=== PATIENT | male | born 1975 | race Caucasian/White ===

== ENCOUNTER 2019-05-30 04:31 | Emergency (ER) | payer MEDICAID ==
[~2019-05-30] VITALS: Ht 188 cm; Wt 104.3 kg
--- NOTE | 2019-05-30 05:28 | NUR ---
Pt had episode of elevated HR at 140's. Dr. Phillips made aware.
--- NOTE | 2019-05-30 05:40 | NUR ---
Pt ambulated into ER with stable gait, A/O x 4. 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 (+) daily smoker Safe environment implemented.
[2019-05-30] MEDS ORDERED: NITROGLYCERIN OINT 1 GM PACKET TP ONE ×2 (05:42→05:45)
[2019-05-30] MEDS ORDERED: NITROGLYCERIN 0.4 MG/TAB BOTTLE SL ONE ×2 (05:42→05:45)
[2019-05-30] MEDS ORDERED: ASPIRIN 81 MG TAB.CHEW ONE (05:42)
[2019-05-30] MEDS ORDERED: ASPIRIN 81 MG TAB.CHEW PO ONE (05:45)
[2019-05-30 05:53] LABS: POTASSIUM 4.3 mmol/L (3.5-5.1)
--- NOTE | 2019-05-30 05:55 | NUR ---
Nitro SL given x 2 with relief.
[2019-05-30 06:05] LABS: BASOPHILS % (AUTO) 0.6 % (0.0-2.0); BILIRUBIN,DIRECT 0.1 mg/dL (0.0-0.2); BILIRUBIN,TOTAL 0.2 mg/dL (0.2-1.0); EOSINOPHILS # (AUTO) 0.3 K/uL (0.0-0.7); EOSINOPHILS % (AUTO) 6.3 % (0.0-7.0); HEMATOCRIT 44.4 % (36.7-47.1); HEMOGLOBIN 14.9 g/dL (12.5-16.3); LYMPHOCYTES # (AUTO) 1.9 K/uL (20.0-40.0); LYMPHOCYTES % (AUTO) 34.9 % (20.5-51.5); MEAN CORPUSCULAR HGB CONC 34 g/dL (32.5-36.3); MEAN CORPUSCULAR VOLUME 89.1 fL (73.0-96.2); MONOCYTES # (AUTO) 0.8 K/uL (2.0-10.0); MONOCYTES % (AUTO) 15.3 % (0.0-11.0); NEUTROPHILS # (AUTO) 2.3 K/uL (1.8-8.9); NEUTROPHILS % (AUTO) 42.9 % (38.5-71.5); PLATELET COUNT (AUTO) 160 K/uL (152-348); RED BLOOD CELL COUNT(AUTO) 4.98 MIL/uL (4.06-5.63); TOTAL PROTEIN, SERUM 7.8 g/dL (6.4-8.2); WHITE BLOOD COUNT (AUTO) 5.4 K/uL (3.6-10.2)
--- NOTE | 2019-05-30 06:35 | NUR ---
CT Head cancelled by Dr. [place]
--- NOTE | 2019-05-30 07:00 | NUR ---
IV removed. Catheter intact and site benign. Pressure and 4x4 gauze applied to site. No bleeding noted.Patient discharged to home in stable conditon. Written and verbal after care instructions given. Patient verbalizes understanding of instructions.
[2019-05-30 07:01] VITALS: BP 124/84
[2019-05-30 07:02] LABS: BAND % (MANUAL) 1 % (0-10); EOSINOPHILS % (MANUAL) 8 % (0-8); LYMPHOCYTES % (MANUAL) 26 % (20-40); MONOCYTES % (MANUAL) 19 % (2-10); NEUTROPHILS % (MANUAL) 46 % (42-75)
== END 2019-05-30 07:02 | disposition home or self-care (01) ==
LOC: ER 04:34
DX: R07.89 Other chest pain (principal); I25.10 Atherosclerotic heart disease of native coronary artery without angina pectoris; F32.9 Major depressive disorder, single episode, unspecified; F15.10 Other stimulant abuse, uncomplicated; F17.210 Nicotine dependence, cigarettes, uncomplicated
CPT/HCPCS: 36415; 70030-TC; 71045; 85025; 85610; 93005; A4663